=== PATIENT | male | born 1955 | race Caucasian/White ===

== ENCOUNTER → 2018-12-26 | Outpatient (CLI) | payer MEDICARE, BC ==
[2018-12-26 10:24] LABS: BASOPHILS ABSOLUTE AUTO 0.04 K/mm3 (0.00-0.23); BASOPHILS PERCENT AUTO 0 % (0-2); EOSINOPHILS ABSOLUTE AUTO 0.31 K/mm3 (0.00-0.68); EOSINOPHILS PERCENT AUTO 3 % (0-6); Hematocrit 47.3 % (37.0-53.0); Hemoglobin 16.5 g/dL (13.5-17.5); IMMATURE GRAN ABSOLUTE AUTO 0.02 K/mm3 (0.00-0.10); IMMATURE GRAN PERCENT AUTO 0 % (0-1); LYMPHOCYTES ABSOLUTE AUTO 1.63 K/mm3 (0.84-5.20); LYMPHOCYTES PERCENT AUTO 18 % (21-46); MONOCYTES ABSOLUTE AUTO 0.76 K/mm3 (0.16-1.47); MONOCYTES PERCENT AUTO 8 % (4-13); Mean Corpuscular HGB Conc 34.9 g/dL (31.5-36.5); Mean Corpuscular Volume 92 fL (80-100); Mean Platelet Volume 10.5 fL (9.1-12.4); NEUTROPHILS ABSOLUTE AUTO 6.52 K/mm3 (1.96-9.15); NEUTROPHILS PERCENT AUTO 70 % (41-73); Platelet Count 282 K/mm3 (150-400); RDW Coefficient Variation 12.6 % (11.7-14.2); RDW Standard Deviation 42.6 fL (35.1-46.3); Red Blood Cell Count 5.15 M/mm3 (4.30-5.90); White Blood Cell Count 9.28 K/mm3 (4.00-11.30)
[2018-12-26 10:34] LABS: Alanine Aminotransfer (ALT/SGP 31 U/L (12-78); Albumin, Blood 3.7 g/dL (3.4-5.0); Albumin/Globulin Ratio 0.9 (0.8-1.8); Alk Phos 104 U/L (40-126); Anion Gap 9 mmol/L (6-16); Aspartate Aminotrans (AST/SGOT 27 U/L (12-37); Bilirubin, Total 0.4 mg/dL (0.1-1.0); Blood Urea Nitrogen 16 mg/dL (8-24); Bun/Creatinine Ratio 16.5 (12.0-20.0); CO2, Blood 28 mmol/L (21-32); Calcium, Blood 9.1 mg/dL (8.5-10.1); Chloride, Blood 107 mmol/L (98-108); Creatinine, Blood 0.97 mg/dL (0.60-1.20); Globulin, Blood 4.3 g/dL (2.2-4.0); Glomerular Filtration Rate >60 (60-); Glucose, Blood 142 mg/dL (70-99); Potassium, Blood 3.4 mmol/L (3.5-5.5); Sodium, Blood 144 mmol/L (136-145); Uric Acid, Blood 7.1 mg/dL (3.5-7.2)
== END | disposition home or self-care (01) ==
LOC: LAB EV 10:19 → LAB SHORT 10:19
PROVIDERS: General Practice
DX: M79.675 Pain in left toe(s) (principal)
CPT/HCPCS: 80053; 84550; 85025; 85651

== ENCOUNTER → 2021-11-23 | Outpatient (CLI) | payer MEDICARE, BC ==
[2021-11-23 11:42] LABS: Bilirubin, Urine Neg (Neg); Blood, Urine Neg (Neg); Glucose Qualitative, Urine Neg (Neg); Ketones, Urine Neg (Neg); Leukocyte Esterase, Urine 3+ (Neg); Nitrite, Urine Neg (Neg); Protein, Urine Neg (Neg); Specific Gravity, Urine 1.005 (1.003-1.022); Urobilinogen, Urine NORM (Normal); pH, Urine 6.5 (5.0-8.0)
[2021-11-23 11:50] LABS: Appearance, Urine Hazy (Clear); Color, Urine Yellow (P-Yellow)
[2021-11-23 11:51] LABS: Bacteria Rare /hpf; Red Blood Cells, Urine Not Seen /hpf (0-2); Squamous Epithelial Cells Not Seen /hpf (Few)
== END | disposition home or self-care (01) ==
LOC: LAB SHORT 11:15 → LAB 11:15
PROVIDERS: Radiology Therapeutic Radiology
DX: Z51.0 Encounter for antineoplastic radiation therapy (principal); C61 Malignant neoplasm of prostate
CPT/HCPCS: 81001; 87086

== ENCOUNTER 2022-12-19 13:24 | Observation (INO) | payer OTHER ==
[~2022-12-19] VITALS: Ht 177.8 cm; Wt 104.3 kg
[2022-12-19] VITALS (11 sets, daily range): BP systolic 89–142; BP diastolic 59–78
[2022-12-19 14:09] LABS: BASOPHILS ABSOLUTE AUTO 0.02 K/mm3 (0.00-0.23); BASOPHILS PERCENT AUTO 0 % (0-2); EOSINOPHILS ABSOLUTE AUTO 0.03 K/mm3 (0.00-0.68); EOSINOPHILS PERCENT AUTO 0 % (0-6); Hematocrit 44.4 % (37.0-53.0); Hemoglobin 15.8 g/dL (13.5-17.5); IMMATURE GRAN ABSOLUTE AUTO 0.04 K/mm3 (0.00-0.10); IMMATURE GRAN PERCENT AUTO 0 % (0-1); LYMPHOCYTES PERCENT AUTO 7 % (21-46); MONOCYTES ABSOLUTE AUTO 0.97 K/mm3 (0.16-1.47); MONOCYTES PERCENT AUTO 7 % (4-13); Mean Corpuscular HGB 31.9 pg (26.0-34.0); Mean Corpuscular HGB Conc 35.6 g/dL (31.5-36.5); Mean Corpuscular Volume 90 fL (80-100); Mean Platelet Volume 9.9 fL (9.1-12.4); NEUTROPHILS ABSOLUTE AUTO 11.44 K/mm3 (1.96-9.15); NEUTROPHILS PERCENT AUTO 86 % (41-73); Platelet Count 277 K/mm3 (150-400); RDW Coefficient Variation 12.5 % (11.7-14.2); RDW Standard Deviation 41.1 fL (35.1-46.3); Red Blood Cell Count 4.96 M/mm3 (4.30-5.90)
[2022-12-19] MEDS ORDERED: ATORVASTATIN CA20 MG (14:24)
[2022-12-19] MEDS ORDERED: HYDCHL25 PO (14:24)
[2022-12-19] MEDS ORDERED: ENALAPRIL MALEA10 M2 PO (14:24)
[2022-12-19] MEDS ORDERED: PANTOPRAZOLE SO40 M2 PO (14:24)
[2022-12-19] MEDS ORDERED: NIFE60ER PO (14:25)
[2022-12-19 14:31] LABS: Albumin, Blood 3.3 g/dL (3.4-5.0); Albumin/Globulin Ratio 0.8 (0.8-1.8); Bilirubin, Total 0.8 mg/dL (0.1-1.0); Bun/Creatinine Ratio 15.2 (12.0-20.0); Calcium, Blood 8.9 mg/dL (8.5-10.1); Creatinine, Blood 0.86 mg/dL (0.60-1.20); Globulin, Blood 4.1 g/dL (2.2-4.0); Potassium, Blood 2.9 mmol/L (3.5-5.5); Total Protein, Blood 7.4 g/dL (6.4-8.2)
--- NOTE | 2022-12-19 17:05 | NUR ---
PT CAME FROM ER WITH 20G IV IN LEFT HAND, FLUSHES WELL
--- NOTE | 2022-12-19 18:27 | NUR ---
12/19/221826 Cindi Mallory PT RECIEVED ANTIBIOTICS IN ER.
--- NOTE | 2022-12-20 04:24 | NUR ---
SHIFT SUMMARY POD 1 LAP APPY PT A&O X4, PLEASENT AND CALLS APPROPRIATELY. PT IS PILOT POINT. PT NORMALLY ON RA AT BASELINE, PT ON 3L NC WHEN SLEEPING. SATTING ABOVE 92% ON 3L NC. ABLE TO GET UP AND WALK TO THE BATHROOM WITH STANDBY ASST. VOIDING, NO GAS OR BOWEL MOVEMENT. DENIES ANY PAIN, STATES THE PAIN IS TOLERABLE. 3 LAP SITES, BELLY BUTTON HAS GAUZE AND TEGADERM, OTHERS HAVE STERI-STRIPS. TOLERATING CLEAR LIQUIDS. NO OTHER CONCERNS AT THIS TIME. CALL LIGHT WITHIN REACH.
[2022-12-20 04:45] VITALS: BP 124/70
[2022-12-20 04:48] LABS: BASOPHILS ABSOLUTE AUTO 0.02 K/mm3 (0.00-0.23); BASOPHILS PERCENT AUTO 0 % (0-2); EOSINOPHILS ABSOLUTE AUTO 0.02 K/mm3 (0.00-0.68); EOSINOPHILS PERCENT AUTO 0 % (0-6); Hematocrit 39.5 % (37.0-53.0); IMMATURE GRAN PERCENT AUTO 1 % (0-1); LYMPHOCYTES PERCENT AUTO 2 % (21-46); MONOCYTES ABSOLUTE AUTO 0.45 K/mm3 (0.16-1.47); MONOCYTES PERCENT AUTO 2 % (4-13); Mean Corpuscular HGB 32.6 pg (26.0-34.0); Mean Corpuscular HGB Conc 35.4 g/dL (31.5-36.5); Mean Corpuscular Volume 92 fL (80-100); NEUTROPHILS PERCENT AUTO 95 % (41-73); Platelet Count 234 K/mm3 (150-400); RDW Standard Deviation 43.8 fL (35.1-46.3); White Blood Cell Count 19.09 K/mm3 (4.00-11.30)
[2022-12-20 05:20] LABS: Bun/Creatinine Ratio 13.4 (12.0-20.0); Calcium, Blood 8.1 mg/dL (8.5-10.1); Creatinine, Blood 0.9 mg/dL (0.60-1.20); Potassium, Blood 3.4 mmol/L (3.5-5.5)
[2022-12-20 07:37] VITALS: BP 112/75
[2022-12-20] MEDS ORDERED: AMOCLA875 PO (14:40)
[2022-12-20] MEDS ORDERED: HYDR1TAB94 PO (14:41)
[2022-12-20 14:56] VITALS: BP 111/58
--- NOTE | 2022-12-20 15:10 | NUR ---
DISCHARGING PT TOLERATING FULL LIQUID DIET. PAIN CONTROLLED W/PO PAIN MEDS. 02 SATS GREATER THAN 90% ON RA. AMBULATED MULTIPLE TIMES W/SPOUSE IN [place]. REVIEWED DC INSTRUCTIONS W/PT AND SPOUSE; VERBALIZED UNDERSTANDING. IVS JANE'D. VSS. PT GETTING DRESSED. ABX PRESCRIPTION FAXED TO [facility].
--- NOTE | 2022-12-20 15:24 | NUR ---
discharged PT LEFT UNIT IN WC W/POSSESSIONS AND DC PAPERWORK IN HAND, ACCOMPANIED BY SPOUSE.
== END 2022-12-20 15:20 | disposition home or self-care (01) ==
LOC: ER 13:24 → MEDS 13:25 → SURS 20:26
PROVIDERS: Physician Assistant; ADMIT Surgery
DX: K35.80 Unspecified acute appendicitis (principal); E87.6 Hypokalemia; K42.0 Umbilical hernia with obstruction, without gangrene; I10 Essential (primary) hypertension; K21.9 Gastro-esophageal reflux disease without esophagitis; Z79.899 Other long term (current) drug therapy
CPT/HCPCS: 36415; 74177; 80048; 80053; 85025; 93005; 93010; 94762; 96365-59; 99285-25; A9270; J0295; J1100; J1170; J2371; J2405; J2704; J3010; J3480; J7030; J7050; J7120; Q9967